=== PATIENT | female | born 2000 | race Two or more races ===

== ENCOUNTER 2023-04-23 12:34 | Emergency (ER) | payer MEDICAID ==
[~2023-04-23] VITALS: Ht 160 cm; Wt 77.1 kg
--- NOTE | 2023-04-23 12:50 | NUR ---
AT BEDSIDE FOR EVAL
--- NOTE | 2023-04-23 12:50 | NUR ---
C/O RIGHT SIDED FLANK PAIN AND PAIN ON URINATION X 2 DAYS. DENIES HEMATURIA
--- NOTE | 2023-04-23 13:00 | NUR ---
URINE SAMPLE TAKEN SENT TO LAB
[2023-04-23 13:58] LABS: BILIRUBIN,URINE 1+ (NEGATIVE); COLOR,URINE YELLOW (YELLOW); LEUKOCYTE ESTERASE ,URINE 1+ (NEGATIVE); NITRITE, URINE POSITIVE (NEGATIVE); PROTEIN,URINE 2+ mg/dl (NEGATIVE); UGLUCOSE 3+ mg/dL (NEGATIVE); UROBILINOGEN,URINE 0.2 EU/dL (0.2)
[2023-04-23] MEDS ORDERED: NITR100C6 PO (14:05)
[2023-04-23 14:15] VITALS: BP 122/81
--- NOTE | 2023-04-23 14:15 | NUR ---
Patient discharged to home in stable condition. Written and verbal after care instructions given. Patient verbalizes understanding of instruction.
[2023-04-23 14:27] LABS: BACTERIA,URINE Moderate /HPF (None Seen); RBC,URINE 21-50 /HPF (0-2); SQUAMOUS EPITHELIAL CELL,UR Few /HPF (None Seen); WBC,URINE 51-80 /HPF (0-3)
== END 2023-04-23 14:15 | disposition home or self-care (01) ==
LOC: ER 12:47
DX: N39.0 Urinary tract infection, site not specified (principal); Z60.2 Problems related to living alone
CPT/HCPCS: 81001; 84703-TC; 87086-TC